=== PATIENT | male | born 1975 | race Caucasian/White ===

== ENCOUNTER → 2021-07-27 10:48 | Outpatient (CLI) | payer OTHER, SELFPAY ==
--- NOTE | 2021-07-27 | DI.MRI.S_ITS ---
PROCEDURE: MR SHOULDER LT WO CON INDICATIONS: Impingement syndrome of left shoulder TECHNIQUE: Noncontrast oblique coronal T2 fast spin echo with fat saturation, oblique sagittal T1 spin echo and T2 fast spin echo with fat saturation, axial T1 spin echo and T2 fast spin echo with fat saturation through the shoulder. COMPARISON: None. FINDINGS: Image quality: Excellent. Rotator cuff: Tendinosis and low-grade articular and bursal surface partial thickness tear involving distal supraspinatus at its insertion on the humeral head is seen extending to musculotendinous junction. Distal infraspinatus tendinosis is seen. Distal subscapularis tendon is intact. No full-thickness rotator cuff tendon rupture. Sagittal images demonstrate no significant muscle atrophy. Bones and bursae: No bone marrow contusions or fractures. Mild to moderate acromioclavicular joint osteoarthritic changes are seen with joint space narrowing, subchondral sclerosis and downward osteophyte formation depressing the musculotendinous junction of supraspinatus. The acromion demonstrates conventional anatomy, without an os acromiale. No pathologic subacromial-subdeltoid or subcoracoid bursal fluid is present. Capsule and soft tissues: There is signal abnormality and contour irregularity involving superior anterior labrum at 12 to 2 o'clock position suggestive of superior anterior labral tear. The long head of the biceps tendinosis is seen. The rotator interval appears normal, without fibrosis. The coracohumeral ligament is normal in thickness. IMPRESSION: 1. Tendinosis and low-grade articular and bursal surface partial thickness tear involving distal supraspinatus extending to musculotendinous junction. Distal infraspinatus tendinosis. No full-thickness rotator cuff tendon rupture. 2. Mild to moderate acromioclavicular joint osteoarthritis. No marrow edema. No fracture or dislocation. No significant subacromial subdeltoid bursal fluid. 3. Suggestion of subtle superior anterior labral tear at 12 to 2 o'clock position. 4. Proximal intra-articular portion of long head of biceps tendinosis. Dictated by: Reed Suarez M.D. on 07/29/2021 at 8:19 Approved by: Reed Suarez M.D. on 07/29/2021 at 8:23
== END ==
PROVIDERS: Referring Provider Orthopaedic Surgery; Visit Provider Orthopaedic Surgery
DX: M75.112 Incomplete rotator cuff tear or rupture of left shoulder, not specified as traumatic (principal); M75.42 Impingement syndrome of left shoulder; M19.012 Primary osteoarthritis, left shoulder
CPT/HCPCS: 73221

== ENCOUNTER → 2023-09-17 12:06 | Outpatient (CLI) | payer OTHER, SELFPAY ==
--- NOTE | 2023-09-17 12:27 | EKG_ITS ---
[facility] [address] [address] Test Date: 2023-09-17 Pat Name: [place] Michelle Department: [facility] Room: Gender: Male [employer] Professor: : 1975 Requested By: Order Number: [id number] Reading MD: Dany Jean MD Measurements Intervals [place] Rate: 82 P: 47 VA: 144 QRS: 30 QRSD: 82 T: 51 QT: 366 QTc: 427 Interpretive Statements Normal sinus rhythm Electronically Signed On 09-17-2023 14:34:46 PDT by Dany Jean MD
[2023-09-17 13:04] LABS: Appearance Urine UA CLEAR; Bilirubin Urine UA NEGATIVE (NEGATIVE); Color Urine UA YELLOW; Glucose Urine UA NEGATIVE (Negative); Ketones Urine UA TRACE (NEGATIVE); Leukocyte Esterase Urine UA NEGATIVE (NEGATIVE); Nitrite Urine UA NEGATIVE (Negative); Occult Blood Urine UA NEGATIVE (Negative); Protein Urine UA NEGATIVE (Negative)
[2023-09-17 13:11] LABS: Add Manual Diff / Slide Review NO; Basophils Absolute Auto 0 /uL (0-100); Basophils Percent Auto 0.8 % (0-2); Eosinophils Absolute Auto 100 /uL (0-450); Eosinophils Percent Auto 1.6 % (2-4); Hematocrit 42.9 % (41-53); Hemoglobin 15.1 g/dL (13.5-17.5); Lymphocytes Absolute Auto 1400 /uL (1100-4500); Lymphocytes Percent Auto 26.1 % (25-40); Mean Corpuscular HGB Conc 35.1 % (30-36); Mean Corpuscular Hemoglobin 33.2 PG (26-34); Mean Corpuscular Volume 94.3 fL (80-100); Monocytes Absolute Auto 400 /uL (0-900); Neutrophils Absolute Auto 3500 /uL (1500-7000); Neutrophils Percent Auto 64.5 % (50-75); Platelet Count 268 X10^3/uL (150-400); Red Blood Cell Count 4.55 X10^6/uL (4.5-5.9); Red Cell Distribution Width 12.9 % (11.6-14.8); White Blood Cell Count 5.4 X10^3/uL (4.5-11.0)
[2023-09-17 13:24] LABS: Bacteria Urine None Seen; RBC Urine None Seen (0-5/HPF); Squamous Epithelial Cell Urine None Seen (0-5/HPF); Urine Volume 10mL (spun); WBC Urine None Seen (0-5/HPF)
[2023-09-17 13:25] LABS: Culture Indicated Urine Cult Not Indicated
[2023-09-17 13:26] LABS: Hemoglobin A1C% w Est Avg Glu 5.4 % (4.0-6.0)
[2023-09-17 13:33] LABS: Blood Urea Nitrogen 20 mg/dL (9-20); Carbon Dioxide 27 mmol/L (22-32); Chloride 106 mmol/L (98-107); Estimated Glomerular Filt Rate > 60 mL/min (>60); Glucose 95 mg/dL (70-100); HEMOLYSIS < 15 (0-50); Potassium 4.3 mmol/L (3.4-5.1); Sodium 139 mmol/L (137-145)
== END ==
LOC: LAB 12:07
PROVIDERS: PCP Internal Medicine; Referring Provider Orthopaedic Surgery; Visit Provider Orthopaedic Surgery
DX: Z01.818 Encounter for other preprocedural examination (principal); Z01.812 Encounter for preprocedural laboratory examination; R73.9 Hyperglycemia, unspecified; N39.0 Urinary tract infection, site not specified
CPT/HCPCS: 36415; 80048; 81001; 83036; 85025; 93005

== ENCOUNTER 2023-10-13 06:08 | Day surgery (SDC) | payer OTHER, SELFPAY ==
[2023-10-05 09:40] VITALS: BMI 26.6
[2023-10-13] VITALS (12 sets, daily range): BP systolic 114–131; BP diastolic 63–84; PULSE 61–101; RESP 13–22; TEMP 35.8–36.4; O2SAT 95–100; BMI 26.6
--- NOTE | 2023-10-13 06:00 | DI.RAD.S_ITS ---
PROCEDURE: XR HIP W PEL IF DONE RT 2V INDICATIONS: WANDA TECHNIQUE: AP pelvis and lateral view of the hip acquired. COMPARISON: [facility], SUZANNE, XR HIP W PEL IF DONE RT 4V, 10/13/2023, 9:19. FINDINGS: Bones: Patient is status post right hip arthroplasty, with hardware components in expected positions. The hip joint appears congruent. The visualized bony structures appear intact. Soft tissues: Overlying postoperative changes are noted. No suspicious soft tissue densities. IMPRESSION: Expected post-operative appearance of a hip arthroplasty. Dictated by: Renetta Mendosa M.D. on 10/13/2023 at 12:09 Approved by: Renetta Mendosa M.D. on 10/13/2023 at 12:09
[2023-10-13] MEDS: LACTATED RINGERS 1,000 ML 42 ML IV ×2 (06:44→08:00)
[2023-10-13] MEDS: VANCOMYCIN 1,000 MG/200 ML PIGGYBACK 200 MG IV (06:47)
[2023-10-13] MEDS: CELECOXIB 200 MG CAPSULE PO (06:47)
[2023-10-13] MEDS: PREGABALIN 75 MG CAPSULE PO (06:47)
[2023-10-13] MEDS: ACETAMINOPHEN 325 MG TABLET 975 MG PO (06:47)
--- NOTE | 2023-10-13 07:21 | SUR.OPER ---
Supine on padded [place] table with bilateral legs secured in padded positioning boots and suspended in positioning spars, operative leg in traction per surgeon. Head on one pillow. Arm on non-operative side secured on padded armboard <90 degrees abduction. Arm on operative side padded and resting across chest then secured with tape over sheet. Padded perineal post in place per surgeon.
--- NOTE | 2023-10-13 07:53 | PM.PREOP ---
Pre-operative Note Interval Note History & Physical reviewed/Exam performed by Physician: Yes Changes to H&P: No
--- NOTE | 2023-10-13 07:53 | P.OP_ITS ---
Operative Date/Time/Diagnoses Date of procedure: 10/13/23 Time of procedure: 07:53 Pre-op diagnosis: right hip OA Post-op diagnosis: same Procedure & Clinicians Procedure: right total hip arthroplasty anterior approach Same procedure as scheduled: Yes Indications: The patient has had progressively worsening right hip pain with radiographic c hanges consistent with arthritis. Non-operative management has failed and the patient has requested total hip replacement. The risks, benefits and alternatives to surgery were discussed with the patient prior to proceeding. Risks discussed included, but were not limited to, failure to relieve pain, leg length discrepancy, dislocation, stiffness, infection, nerve damage, deep venous thrombosis, pulmonary embolism, stroke, coma, heart attack, permanent paralysis and , as well as the potential need for eventual revision of the prosthetic. Surgeon: Arlen Chaudhari Cyanide Case Hardener: Tesfaye Hutchison Anesthesia Type: General Operative Notes Findings: Severe right hip OA, adequate bone and adequate stability Closure Type: primary Specimen(s): none sent Prosthetic devices, grafts, tissues, transplants, or devices: Chaudhari and Nephew polar size 6 standard offset with collar, 62 mm cup, neutral poly liner,one 6.5 mm screw, 40+ 0 Oxinium Estimated Blood Loss (mL): 250 Blood products transfused: none Procedure in detail: The patient was brought to the operating room. Patient was carefully positioned in the supine position. Time-out was performed and antibiotics were given. Anesthesia was induced. He was positioned in the on the table in order to allow hyperextension of the hip. The right lower extremity was prepped and draped in a standard sterile fashion. An anterior right hip incision was made 1 fingerbreadth lateral to the anterior superior iliac spine and extended distally towards the greater trochanter. Dissection was carried out through skin and subcutaneous tissues. Superficial hemostasis was achieved. The fascia over the tensor fascia valentin was defined and incised with a knife. Two Allis clamps were used to grasp the fascia. Tensor fascia valentin was retracted laterally. A gelpi retractor was placed. Dissection was carried out down along the neck. The circumflex vessels were carefully identified and cauterized with the Aqua Mantis. A PA was used during the procedure and was essential for intraoperative retraction and safe implantation of the components. There was good visualization of the femoral neck. A Cobra was placed superior to the neck and the gluteus fibers were carefully stripped from that superior aspect of the capsule. A 2nd retractor was placed along the inferior aspect of the neck. The rectus insertion along the capsule was partially released. A 3rd retractor that was then gently placed over the rim of the acetabulum under the rectus. Capsule was carefully incised and released from the intertrochanteric line circumferentially superior to the mid sagittal line and inferiorly to the mid sagittal line until the lesser trochanter was palpable. A tag stitch was placed both in the superior and inferior limb of the capsular insertion. Along the acetabulum capsule was also released up to the mid sagittal 12:00 position. A portion of the labrum was resected. A saw was used to perform an osteotomy at the level of the intertrochanteric line and the junction of the superior femoral neck leaving approximately 1 finger breath of residual inferior neck above the lesser trochanter. A 2nd cut was made along the femoral neck at the base of the head and a napkin ring of neck was removed. Corkscrew was placed in the femoral head and the head was removed without difficulty. Retractors were then repositioned around the acetabulum. Residual labrum was resected and additional osteophytes were removed. A reamer that was 4 mm below the templated size was placed by hand in the acetabulum and it was reamed to centralize the acetabulum. It was then reamed up to 2 under the templated size and fluoroscopy was brought in to confirm the position of the reaming and depth of reaming. I reamed 1 under the anticipated size. A trial cup was placed and noted that it was appropriately sized and fluoroscopy confirmed position and depth. The component was open and inserted without difficulty fluoroscopic imaging was used to confirm that the cup had been adequately seated and was well positioned. It was further stabilized with a single screw. Neutral poly liner was placed. The cup was tested and noted to be stable. Attention was then directed to the femur. The femur was gently hyperextended additional capsular release was performed as needed in order to allow adequate visualization of the proximal femur with elevation of the femur. Patient was placed in a hyperextended slightly adducted position with maximum external rotation. Box osteotome was used to check for any residual neck as well as sclerotic bone along the trochanter. [place] pepper was placed in the femur. Additional broaching was performed. Canal finder was used to determine the alignment of the canal and position. Size 1 broach was placed. The canal was then appropriately broached up to the templated size as long as there was adequate stability of the broach and serial advancement of the broach without excessive impingement. Specific attention was directed at avoiding varus attempting to direct the distal aspect of the broach more anteriorly and avoiding excessive anteversion. Trial reduction showed acceptable range of motion, good stability, no posterior impingement, baptist of leg length and appropriate lateral shuck. I also hyperflexed the hip and checked that there was no impingement anteriorly and there was good stability with flexion, adduction and internal rotation. Marcaine and Exparel were injected. The stem was placed without difficulty. Repeat trial reduction and x-ray showed acceptable overall position, length, and no evidence of the femoral fracture. Final head was placed. Wound was meticulously irrigated with normal saline. The hip was reduced and additional Exparel and Marcaine were injected. The capsule was closed with interrupted nonabsorbable sutures. The fascia of the tensor was closed with interrupted and running Vicryl. No drain was placed. Any tensor fascia valentin muscle that appeared to be contused or injured which was a minimal amount was carefully resected. Capsule around the tensor was injected with Exparel and Marcaine. The skin was closed with barbed stitches for the subcutaneous tissue and skin. We also used surgical glue. The wound was dressed sterilely. Brief Betadine soak was also used and was meticulously irrigated with normal saline. Patient was transferred to recovery room in satisfactory condition. Complications: none Post-operative Condition: stable Disposition: Acute Care Plan for aftercare: The patient will be maintained on a standard total hip replacement protocol with weight bearing as tolerated and anterior hip precautions. The patient will receive Aspirin and sequential compression devices for DVT prophylaxis. The patient will be discharged home when safe for the home environment.
[2023-10-13] MEDS: CEFAZOLIN 2 GM/100 ML PREMIX 100 ML IV ×2 (08:12→17:42)
[2023-10-13] MEDS: TRANEXAMIC ACID 1,000 MG VIAL 1000 MG INJ ×2 (08:25→10:41)
[2023-10-13] MEDS: BUPIVACAINE 0.25% (PF) 60 ML, EPINEPHrine 0.3 MG INJ (08:32)
[2023-10-13] MEDS: SODIUM CHLORIDE 0.9% 1,000 ML 84 ML IV (08:45)
[2023-10-13] MEDS: BUPIVACAINE LIPOSOME 266 MG/20 ML VIAL INJ (10:31)
--- NOTE | 2023-10-13 10:33 | DI.RAD.S_ITS ---
PROCEDURE: XR HIP W PEL IF DONE RT 4V INDICATIONS: RIGHT TOTAL HIP REPLACEMENT TECHNIQUE: 2 view(s) of the hip acquired. COMPARISON: None. FINDINGS: 4 operative C-arm images were utilized during total right hip arthroplasty with no radiographic evidence of complications. IMPRESSION: C-arm imaging utilized during total right hip arthroplasty. Dictated by: Gautam Proctor M.D. on 10/13/2023 at 13:50 Approved by: Gautam Proctor M.D. on 10/13/2023 at 13:51
[2023-10-13] MEDS: fentaNYL 100 MCG/2 ML INJ IV ×2 (11:12→11:21)
[2023-10-13] MEDS: METOCLOPRAMIDE 10 MG/2 ML INJ IV (11:14)
[2023-10-13] MEDS: hydrOXYzine 50 MG/ML INJ 25 MG IM (11:16)
[2023-10-13] MEDS: OXYCODONE IR 5 MG TABLET PO ×3 (11:18→14:46)
[2023-10-13] MEDS: ONDANSETRON 4 MG/2 ML INJ IV (11:18)
[2023-10-13] MEDS: LACTATED RINGERS 1,000 ML 120 ML IV (11:19)
[2023-10-13] MEDS: methocarbamoL 500 MG TABLET PO (11:29)
[2023-10-13] MEDS: HYDROMORPHONE 1 MG INJ IV (11:32)
[2023-10-13] MEDS: LACTATED RINGERS 1,000 ML 100 ML IV (11:57)
--- NOTE | 2023-10-13 11:58 | PC.NURSE ---
Patient arrived from PACU to room 221. Oriented to room and call light. Call light and urinal placed within reach. VSS. Patient answering questions appropriately, but then fell asleep.
[2023-10-13] MEDS: ACETAMINOPHEN 325 MG TABLET 650 MG PO (13:58)
[2023-10-13] MEDS: IBUPROFEN 400 MG TABLET PO (13:59)
--- NOTE | 2023-10-13 16:30 | PT.IIE ---
Current Diagnoses Unilateral primary osteoarthritis, right hip (10/13/23) Surgery Performed Operation Date: 10/13/23 07:45 Actual Procedures p Total Hip Arthroplasty/Anterior Approach(Right) - Arlen Chaudhari MD Surgical History (Last Reviewed 10/13/23 @ 06:42 by Marti Mccord, RN) H/O left wrist surgery Hx of colonoscopy Hx of cystoscopy Hx of laminectomy (~2019) Medical History (Last Reviewed 10/13/23 @ 06:42 by Marti Mccord RN) Abdominal pain Anesthesia complication Anxiety Depression Deviated septum Osteoarthritis PTSD (post-traumatic stress disorder) Tinnitus Physical Therapy Inpatient Evaluation/Re-Eval M1 PT/OT-IP Prior Functional Status Start: 10/13/23 17:52 Freq: NEEDED Status: Active Protocol: Document 10/13/23 16:30 AB (Rec: 10/13/23 18:08 AB [id number]) Medical Review Prior Functional Status Medical History Reviewed Yes Communication able to make needs known Mobility and Gait pt stated that he was independent with all mobilities and ambulation without AD but occasionally uses a SPC for outdoor mobility depending on pain Activities of Daily Living and IADL's Not able to bend over to do his socks and shoes and spouse assist pt Social History Household Members spouse,children Living Arrangements House Number of Floors (Floors) Two Floors Number of Stairs To Enter/Railing? pt stays on main level of the house has 2 platform steps to enter th house Home Environment High Toilet,Walk in Shower Home Equipment Front Wheel Walker,Straight Cane,Hand Held Shower Additional Social History Comment pt has his spouse and 2 sons to assist him at home pt has an adjustable bed M2 PT-IP Current Condition Start: 10/13/23 17:52 Freq: NEEDED Status: Active Protocol: Document 10/13/23 16:30 AB (Rec: 10/13/23 18:08 AB [id number]) Physical Therapy Current Condition Current Condition Evaluation Date 10/13/23 Treatment Diagnosis s/p R WANDA anterior;difficulty in walking Onset Date 10/13/23 M3 PT-IP Subjective Start: 10/13/23 17:52 Freq: NEEDED Status: Active Protocol: Document 10/13/23 16:30 AB (Rec: 10/13/23 18:08 AB [id number]) Subjective Physical Therapy Visit Type Type Initial Evaluation Visit Start Time 16:30 Visit Stop Time 17:00 Number of INFORMATION TECHNOLOGY INSTRUCTOR Visits 0 Physical Therapy Visit Comments Patient Comments agreeable to do PT Therapy Pain Assessment Pain When Pain Assessed At Rest Location Right Hip Intensity 5 Scale Used Numeric (0 - 10) Pain Management Techniques Distraction,Modification of Treatment,Re-positioning, Timing of Activity with Medications M4 PT-IP Mobility and Gait Start: 10/13/23 17:52 Freq: NEEDED Status: Active Protocol: Document 10/13/23 16:30 AB (Rec: 10/13/23 18:08 AB [id number]) PT-Bed Mobility Assessment Supine to Sit Supine to Sit Standby Assistance PT-Transfer Assessment Sit to and From Stand Sit to and from Stand Standby Assistance,1 Person Assistance,Use of Upper Extremities Equipment Transfer Assistive Device Gait Belt,Front Wheeled Walker Orthotic/Prosthetic Devices or Brace: No Transfers Transfer Destination Toilet Transfer Technique ambulated Transfer Ability Level of Assist Standby Assistance,1 Person Assistance,Use of Upper Extremities Comments Mobility Comments pt supine in bed and agreeable to do PT. reviewed hip precautions with pt and pt was able to recall. obtained PLOF and home set up from pt. BP: 133/88. pt completed supine to sit SBA . able to sit on EOb SBA. sit to stand SBA and ambulated in the hallway using FWW SBA 75 ft.. occasional cues for hip precautions. completed up/down platform steps using FWW CGA and cues. pt repeated x 4 reps. pt initially requiring cues for proper techniques and safety with stair climbing but able to complete without cues on last attempt. pt ambulated back to his room and requested to use the toilet. ambulated to the toilet using FWW SBA. call light within reach. pt without further concerns. Gait Assessment Gait Gait Assistance Required: Standby Assistance Distance (Feet) 75 Able to Maintain Weight Bearing Status Yes During Gait Assistive Devices Assistive Device Gait Belt,Front Wheeled Walker Orthotic/Prosthetic Devices or Brace: No Gait Deviations General Gait Pattern Decreased Feet Clearance Factors Limiting Gait Function Factors Limiting Gait Function Decreased Activity Tolerance, Decreased Strength,Limited Range of Motion,Pain,Poor Balance,Poor Safety Awareness Stair Climbing Assessment Evaluation Level of Assist On Stairs Contact Guard Assistance Devices Stair Climbing Assistive Devices Front Wheel Walker Technique/Endurance Stair Climbing Direction Ascend and Descend Stair Climbing Technique Step to Step Number of Steps Climbed 1 Query Text: Stair Climbing Set # Repetitions (reps) 4 PT-Balance Assessment Sitting Balance and Reactions Static Sitting Balance Ability Normal Dynamic Sitting Balance Ability Good Standing Balance and Reactions Static Standing Balance Ability Good Dynamic Standing Balance Ability Fair Device Used FWW M5 PT-IP Objective Assessments Start: 10/13/23 17:52 Freq: NEEDED Status: Active Protocol: Document 10/13/23 16:30 AB (Rec: 10/13/23 18:08 [id number]) Orientation Orientation/Cognition Level of Alertness Alert Orientation Name,Place,Situation Language Function Ability No Deficits Noted Safety Awareness Decreased Safety Awareness Memory Description No Deficits Noted Gross Range of Motion Lower Extremity ROM Assessment Within Functional Limits Strength Lower Extremity Strength Assessment Within Functional Limits Sensation Assessment Sensation Gross Sensation Right UE Impaired Sensation Description Numbness Comments Sensation Comments R fingers numbness Muscle Tone Muscle Tone WNL Yes M6 PT-IP Treatment Start: 10/13/23 17:52 Freq: NEEDED Status: Active Protocol: Document 10/13/23 16:30 AB (Rec: 10/13/23 18:08 AB [id number]) Physical Therapy Treatment Education Education Provided Precautions,Weight Bearing Status,Safety M7 PT-IP Assessment and Plan Start: 10/13/23 17:52 Freq: NEEDED Status: Active Protocol: Document 10/13/23 16:30 AB (Rec: 10/13/23 18:08 AB [id number]) PT Summary Assessment and Plan Potential Rehabilitation Potential Fair Status of Condition at Evaluation Stable Summary Impairments Pain,ROM,Strength,Balance, Coordination,Sensation,Bed Mobility,Transfers,Gait, Activity Tolerance Assessment Summary pt is a 48 y/o M s/p R WANDA anterior approach POD 0. pt has R hip anterior precautions and is WBAT. pt requiring SBA with mobility using FWW and plans to go home and spouse to assist him. pt may go home when medically stable. pt also has outpt PT set up. Goals Bed Mobility Goal Independent Transfer Goal Independent,Front Wheeled Walker Gait Goal Independent,Front Wheel Walker Gait Distance 300 Other Goals up/down 2 platform steps using FWW mod I Days to Meet Goals 3 Frequency of Treatment Frequency Of Treatment Twice a Day Treatment Plan Physical Therapy Treatment Plan Bed Mobility Training,Transfer Training,Gait Training, Therapeutic Exercise,Balance Retraining,Post Op Education, Discharge Planning,Hot or Cold Pack,Neuromuscular Re-ed, Coordination Retraining,Manual Therapy Precautions Anterior Hip Precautions No Hip Extension,No Hip External Rotation Weight Bearing Status Weight Bearing Status Weight Bear as Tolerated Allowed Weight Bearing Amount (enter % RLE WBAT or #) (%) Recommendations To Nursing Amount of Assist Needed Standby Assistance Discharge Recommendations PT Discharge Recommendations Home with Assistance, Outpatient PT Transportation Needs at Discharge Private Vehicle
--- NOTE | 2023-10-13 16:36 | OT.IP.EVAL ---
Current Diagnoses Unilateral primary osteoarthritis, right hip (10/13/23) Surgery Performed Operation Date: 10/13/23 07:45 Actual Procedures p Total Hip Arthroplasty/Anterior Approach(Right) - Arlen Chuadhari MD Past Medical History (Last Reviewed 10/13/23 @ 06:42 by Marti Mccord, RN) Abdominal pain Anesthesia complication Anxiety Depression Deviated septum Osteoarthritis PTSD (post-traumatic stress disorder) Tinnitus Surgical History (Last Reviewed 10/13/23 @ 06:42 by Marti Mccord RN) H/O left wrist surgery Hx of colonoscopy Hx of cystoscopy Hx of laminectomy (~2019) Occupational Therapy Inpatient Evaluation/Re-Eval M1 PT/OT-IP Prior Functional Status Start: 10/13/23 16:34 Freq: NEEDED Status: Active Protocol: Document 10/13/23 16:34 [facility] (Rec: 10/13/23 16:57 [facility] [id number]) Medical Review Prior Functional Status Communication Independent Mobility and Gait Independent but had pain. Activities of Daily Living and IADL's Not able to bend over to do his socks and shoes. Prior Functional Level (Other details) Pt or either of his two sons to be with him at home. Social History Household Members children Living Arrangements House Number of Stairs To Enter/Railing? Pt has two steps platform steps with bilateral rails. Home Environment High Toilet,Walk in Shower,Tub /Shower Home Equipment Front Wheel Walker,Hand Held Shower M2 OT-IP Current Condition Start: 10/13/23 16:34 Freq: Status: Active Protocol: Document 10/13/23 16:34 [facility] (Rec: 10/13/23 16:57 [facility] [id number]) Occupational Therapy Current Condition Current Condition Evaluation Date 10/13/23 Treatment Diagnosis S/P R WANDA Anterior approach Diagnosis Onset Date 10/13/23 Post Operative Precautions Anterior Hip Precautions No Hip Extension,No Hip External Rotation M3 OT- IP Subjective and Pain Start: 10/13/23 16:34 Freq: Status: Active Protocol: Document 10/13/23 16:34 [facility] (Rec: 10/13/23 16:57 [facility] [id number]) OT- Subjective Occupational Therapy Visit Type Type Initial Evaluation Visit Start Time 15:45 Visit Stop Time 16:36 Occupational Therapy Visit Comments Patient Comments Pt agreed to get up and wanting to use the bathroom. Patient/Caregiver Goals To go home. OT Pain Assessment Pain When Pain Assessed During Mobility Pain Present Pain Present Pain Reported Location Right Hip Intensity 5 Scale Used Numeric (0 - 10) M4 OT- IP ADL's Start: 10/13/23 16:34 Freq: Status: Active Protocol: Document 10/13/23 16:34 [facility] (Rec: 10/13/23 16:57 [facility] [id number]) OT QFA-[id number]-Fpraqlg Comments OT Self-Feeding Comments Not at meal time. OT ADL-Grooming Comments OT Grooming Comments Pt able to wash his hands with a wash cloth. OT ADL-Oral Care Comments Oral Care Comments NOt performed. OT ADL-Dressing General Eval Lower Body Dressing Ability Maximum Assistance Areas Needing Assistance Socks Comments OT Dressing Comments Emphasized for pt to not externally rotate his hip during dressing and other ADl needs. Pt states his family will just assist him. Educated of LB dressing equipment, but pt not interested. OT ADL-Toileting General Evaluation Toileting Ability Standby Assistance Comments OT Toileting Comments Pt able to sit on the toilet to urinate on his own. Pt getting up without the FWW and cued to use the FWW for safety at this time. Pt is SBA mainly just for safety reminders. OT ADL-Bathing Comments OT Bathing Comments Suggested pt have assist for showering, educated to cover the dressing for showering needs. M5 OT- IP IADL's Start: 10/13/23 16:34 Freq: Status: Active Protocol: Document 10/13/23 16:34 [facility] (Rec: 10/13/23 16:57 [facility] [id number]) OT-Instrumental Activities of Daily Living Deficits IADL Deficits Identified Deficits Home Safety Awareness Home Safety Comments Pt needing lots of encouragement and reminders to slow down and take smaller steps. At this time it would be best for his family to assist pt as needed and especially for safety reminders. Meal Preparation Meal Preparation Caregiver Provides Assist Grill Cook Grill Cook Caregiver Provides Assist M6 OT- IP Functional Cognition Start: 10/13/23 16:34 Freq: Status: Active Protocol: Document 10/13/23 16:34 [facility] (Rec: 10/13/23 16:57 [facility] [id number]) Cognitive Factors Limiting Selfcare Function Cognitive Ability Level of Alertness Alert Patient Orientation Name,Age,Birthday,Month,Date, Year,Day of Week,Place, Situation Attention Span Ability Capable of Focused Attention, Capable of Sustained Attention Ability to Follow Commands Able to Follow One Step Commands Safety Awareness Decreased Recall of Precautions,Decreased Ability to Apply Precautions, Underestimates Need for Assistance Cognitive Comments Cognitive Assessment Comments Pt needing repetition for his hip precautions for ADL and mobility needs. Pt tends not to use the FWW and cues to use it at this time for safety. OT- Vision and Hearing OT- Hearing Assessment OT- Hearing Assessment WFL OT- Vision Assessment Visual Acuity Glasses For Reading Visual Attentiveness WFL Occular Pursuits WFL M7 OT- IP Mobility and Balance Start: 10/13/23 16:34 Freq: Status: Active Protocol: Document 10/13/23 16:34 [facility] (Rec: 10/13/23 16:57 [facility] [id number]) OT- Bed Mobility Assessment Supine to Sit Supine to Sit Assist Standby Assistance Sit to Supine Sit to Supine Assist Standby Assistance Scooting Scooting to Edge of Bed Standby Assistance OT-Transfer Assessment Sit to and From Stand Sit to and from Stand Standby Assistance Transfers Transfer Ability Standby Assistance Technique Transfer Destination Bed,Toilet Transfer Technique Stand Step Pivot Devices Transfer Assistive Devices None,Front Wheeled Walker Comments Mobility Comments Able to show pt how to use the gait belt if needed to assist while getting his RLE into and out of the bed or to put his legs together and keep his toes to be sure that he does not externally rotate his RLE. Pt also able to do a step with the FWW. Originally pt was planning on his sons lifting him up the steps. OT- Balance Assessment Sitting Balance and Reactions Static Sitting Balance Ability Normal Dynamic Sitting Balance Ability Good Standing Balance and Reactions Static Standing Balance Ability Good Dynamic Standing Balance Ability Good M8 OT- IP Objective Assessments Start: 10/13/23 16:34 Freq: Status: Active Protocol: Document 10/13/23 16:34 [facility] (Rec: 10/13/23 16:57 [facility] [id number]) OT Strength Comments Strength Comments WFL for needs. M9 OT- IP Assessment and Plan Start: 10/13/23 16:34 Freq: Status: Active Protocol: Document 10/13/23 16:34 [facility] (Rec: 10/13/23 16:57 [facility] [id number]) OT Summary Assessment and Plan Potential Rehabilitation Potential Excellent Analytic Complexity at Evaluation Low Summary OT Impairments Pain,Balance,Functional Mobility,Dressing,Bathing Progress Towards Goals Progressing Toward Goals Assessment Summary Pt low complexity and main barriers are pain and just needing reassurance that pt is doing well. Pt will need assist for LB dressing and showering needs as pt does not want to use any equipment. Pt also able to do platform step with the FWW with SBA. Pt to go home when medically stable . Goals Bathing Goal Standby Assistance Shower Transfer Goal Independent Days to Meet Goals 2 Frequency of Treatment Frequency Of Treatment Once a Day Treatment Plan OT Treatment Plan ADL Training,Functional Mobility,Patient/Family Education,Discharge Planning Discharge Recommendations OT Discharge Recommendations Home with Assistance, Outpatient PT Transportation Needs at Discharge Private Vehicle
[2023-10-13] MEDS: polyethylene glycoL 3350 17 GM POWD.PACK PO (18:43)
[2023-10-13] MEDS: HYDROCODONE/ACET 5/325 TABLET 2 TAB PO (18:43)
--- NOTE | 2023-10-13 19:29 | PC.NURSE ---
Per discharge paperwork patient's prescriptions were sent by Dr. Chaudhari to [facility] [place] and transmission was failed (this placed after office hours). Reviewed medications with patient and he states he has all medications available tonight, but would like prescriptions resent to his local pharmacy in [place]. Patient to call office tomorrow and will need to be resent. Patient medicated with hydrocodone as ordered prior to leaving. Cleared by PT and OT. Patient has no further questoins or concerns at this time.
== END 2023-10-13 18:47 | disposition home or self-care (01) ==
LOC: OR 06:09 → AC 06:12
PROVIDERS: PCP Internal Medicine; Referring Provider Internal Medicine; Visit Provider Orthopaedic Surgery
PROC: (CPT 27130; principal; 2023-10-13 07:45)
DX: M16.11 Unilateral primary osteoarthritis, right hip (principal); M25.751 Osteophyte, right hip
CPT/HCPCS: 27130; 73502; 73503; 76000; 97116; 97161; 97165; 97530; 97535; C1776; C9290; J0171; J0690; J1100; J1170; J2250; J2405; J2704; J2765; J3010; J3410

== ENCOUNTER → 2024-01-01 17:13 | Outpatient (CLI) | payer OTHER, SELFPAY ==
[2023-10-13 14:09] VITALS: BMI 26.6
--- NOTE | 2024-01-01 17:15 | DI.MRI.S_ITS ---
PROCEDURE: MR SHOULDER RT WO CON INDICATIONS: PAIN IN RIGHT SHOULDER TECHNIQUE: Noncontrast oblique coronal T2 fast spin echo with fat saturation, oblique sagittal T1 spin echo and T2 fast spin echo with fat saturation, axial T1 spin echo and T2 fast spin echo with fat saturation through the shoulder. COMPARISON: [facility] [place], CR, XR SHOULDER 2+ VIEWS RIGHT, 10/05/2023, 16:09. [facility], MR, MR SHOULDER LT WO CON, 07/27/2021, 11:43. FINDINGS: Image quality: Excellent. Bones: The bone marrow signal is normal. There is no acute fracture or dislocation. Acromioclavicular joint: Mild-moderate osteoarthritis. There is a type 2 acromion. Glenohumeral joint: Mild osteoarthritis. There is no significant joint effusion. Labrum: Sublabral recess, an anatomic variant (01/19). The labrum is otherwise normal. Cartilage: There is no significant articular cartilage defect. Subacromial-subdeltoid bursa: There is no significant amount of fluid in the subacromial-subdeltoid bursa. Rotator cuff: There is mild supraspinatus tendinosis without a focal tear. The infraspinatus tendon is intact. The subscapularis tendon is intact. The teres minor tendon is intact. Long head of biceps tendon: The long head of the biceps tendon is present within the bicipital groove and intact. Musculature: There is minimal fatty atrophy and faint intramuscular edema of the teres minor (/; 01/29). Muscle bulk is otherwise preserved without evidence of denervation or fatty atrophy. Inferior glenohumeral ligaments/Axillary pouch: The axillary pouch is normal in thickness and signal. Coracoclavicular and coracoacromial ligaments: The coracoclavicular and coracoacromial ligaments are normal. Other: No compressive etiology in the suprascapular notch, spinoglenoid notch, or quadrilateral space. IMPRESSION: 1. Mild supraspinatus tendinosis. No focal tear. 2. Minimal subacute denervation changes of the teres minor, without a compressive etiology in the quadrilateral space. 3. Mild-moderate acromioclavicular osteoarthritis. 4. Mild glenohumeral osteoarthritis. Dictated by: Jorge Arellano M.D. on 01/04/2024 at 12:07 Approved by: Jorge Arellano M.D. on 01/04/2024 at 12:19
== END ==
PROVIDERS: PCP Internal Medicine; Referring Provider Orthopaedic Surgery; Visit Provider Orthopaedic Surgery
DX: M19.011 Primary osteoarthritis, right shoulder (principal); M25.511 Pain in right shoulder
CPT/HCPCS: 73221